=== PATIENT | female | born 1940 ===

== ENCOUNTER → 2018-03-19 | Outpatient (CLI) | payer MEDICARE, SELFPAY ==
[~2018-03-19] MED LIST: AMLO5 PO; Antivert25 MG PO; Coumadin5 MG PO; HYDCHL25 PO; LORA.5 PO; METO25; Nitrostat0.4 MG SL; TRIHYD253B PO; WARF3 PO
== END | disposition home or self-care (01) ==
LOC: LAB SHORT 13:40 → LAB 13:40
DX: R05 Cough (principal)
CPT/HCPCS: 87798

== ENCOUNTER 2018-09-23 08:33 | Day surgery (SDC) | payer MEDICARE ==
[~2018-09-23] VITALS: Ht 162.6 cm; Wt 63.0 kg
[~2018-09-23 08:33] MED LIST changes: +AMLO5; +Metoprolol Succ25 MG
[2018-09-23] MEDS ORDERED: MELA3 (09:20)
== END 2018-09-23 10:40 | disposition home or self-care (01) ==
LOC: ORSCSDS 08:33
PROVIDERS: Ophthalmology
PROC: 08RK3JZ Replacement of Left Lens with Synthetic Substitute, Percutaneous Approach (ICD-10-PCS; principal; 2018-09-23 10:00)
DX: H25.12 Age-related nuclear cataract, left eye (principal); I10 Essential (primary) hypertension; I48.91 Unspecified atrial fibrillation; Z79.01 Long term (current) use of anticoagulants; Z79.899 Other long term (current) drug therapy; Z86.73 Personal history of transient ischemic attack (TIA), and cerebral infarction without residual deficits
CPT/HCPCS: J2001; J2250; J3010; J3301; J7120; V2632

== ENCOUNTER 2019-01-11 08:23 | Day surgery (SDC) | payer MEDICARE, OTHER ==
[~2019-01-11 08:23] MED LIST changes: +MELA3
--- NOTE | 2019-01-11 08:52 | NUR ---
PATIENT TAKES METOPROLOL AT BASELINE FOR RATE CONTROL. TOOK HER METOPROLO THIS AM PER HER USUAL.
--- NOTE | 2019-01-11 09:25 | NUR ---
UNABLE TO PERFORM FULL TEST DUE TO HEART RATE RANGE, PLATFORM STAPLER NOTIFIED BY OTONIEL LOTT AMD EXAM CANCELED DUE TO ARRYTHMIA RATE.
== END 2019-01-11 09:41 | disposition home or self-care (01) ==
LOC: ORD 08:23 → CT 08:23 → ORD 08:30
DX: I25.10 Atherosclerotic heart disease of native coronary artery without angina pectoris (principal); I77.810 Thoracic aortic ectasia; I35.8 Other nonrheumatic aortic valve disorders; I27.21 Secondary pulmonary arterial hypertension; I31.3 Pericardial effusion (noninflammatory); I51.7 Cardiomegaly

== ENCOUNTER → 2019-01-15 | Outpatient (CLI) | payer MEDICARE, OTHER | LOC: PLD 08:12 → LAB SHORT 08:12 | DX: D48.5 Neoplasm of uncertain behavior of skin (principal) | CPT/HCPCS: 88305 ==

== ENCOUNTER → 2019-02-15 | Outpatient (CLI) | payer MEDICARE, OTHER ==
[~2019-02-15] MED LIST changes: +MONDOXYNE NL100 MG PO
== END | disposition home or self-care (01) ==
LOC: LAB 17:20 → LAB SHORT 17:20
DX: L02.11 Cutaneous abscess of neck (principal)
CPT/HCPCS: 87070; 87205

== ENCOUNTER 2019-03-10 08:18 | Day surgery (SDC) | payer MEDICARE, SELFPAY ==
[~2019-03-10] VITALS: Ht 165.1 cm; Wt 61.9 kg
--- NOTE | 2019-03-10 09:40 | NUR ---
03/10/19 0940 Cira Cardona PT TOOK AN EXTENDED AMOUNT OF TIME IN THE RESTROOM. PT INTO ROOM APPROX 0905. PT TOOK COUMADIN THIS MORING; PT LAB VALUE AT 15.3. BOTH SURGEON & ANESTHESIA NOTIFIED; NO ORDERS.
[2019-03-10] MEDS ORDERED: METO50ER PO (09:42)
[2019-03-10] MEDS ORDERED: AMOCLA500 PO (09:43)
--- NOTE | 2019-03-10 09:51 | NUR ---
03/10/19 0951 Mirta Sparrow A SCAB NOTED IN CYST AREA
--- NOTE | 2019-03-10 10:49 | NUR ---
03/10/19 1049 Fela Lawson PT. C/O NAUSEA. PT. VERBALIZED THAT SHE CAME IN WITH NAUSEA FROM TAKING HER AUGMENTIN. PT. OFFERED ZOFRAN BUT PER PT. SHE BROUGHT IN SOME HOMEOPATHIC REMEDY TO TAKE. PT. ALSO HAD VERBALIZED THAT THE NAUSEA MEDICATION PRESCRIBED BY DR. BROWN SHE TOOK AT HOME DIDN'T AGREE WITH HER. PT. INSTRUCTED TO LET DR. BROWN KNOW THIS, PT. THEN VERBALIZED THAT SHE WOULD BE FINE ONCE SHE WAS FINISHED WITH THE AUGMENTIN.
== END 2019-03-10 11:42 | disposition home or self-care (01) ==
LOC: ORSCSDS 08:18
PROVIDERS: Otolaryngology
PROC: 0JB40ZX Excision of Right Neck Subcutaneous Tissue and Fascia, Open Approach, Diagnostic (ICD-10-PCS; principal; 2019-03-10 09:45)
PROC: 0JQ40ZZ Repair Right Neck Subcutaneous Tissue and Fascia, Open Approach (ICD-10-PCS; principal; 2019-03-10 09:45)
DX: L72.0 Epidermal cyst (principal); I10 Essential (primary) hypertension; I48.91 Unspecified atrial fibrillation; Z86.718 Personal history of other venous thrombosis and embolism; Z79.01 Long term (current) use of anticoagulants; Z79.899 Other long term (current) drug therapy
CPT/HCPCS: 82947; 88304; J1100; J2250; J2704; J3010; J7120

== ENCOUNTER 2020-07-11 14:15 | Observation (INO) | payer MEDICARE ==
[~2020-07-11] VITALS: Ht 165.1 cm; Wt 62.1 kg
[~2020-07-11 14:15] MED LIST changes: +AMOCLA500 PO; +METO50ER PO
[2020-07-11 14:50] LABS: BASOPHILS ABSOLUTE AUTO 0.07 K/mm3 (0.00-0.23); BASOPHILS PERCENT AUTO 2 % (0-2); EOSINOPHILS ABSOLUTE AUTO 0.23 K/mm3 (0.00-0.68); EOSINOPHILS PERCENT AUTO 5 % (0-6); Hematocrit 43.3 % (33.0-51.0); Hemoglobin 14.1 g/dL (11.5-16.0); IMMATURE GRAN ABSOLUTE AUTO 0.01 K/mm3 (0.00-0.10); IMMATURE GRAN PERCENT AUTO 0 % (0-1); LYMPHOCYTES ABSOLUTE AUTO 2.07 K/mm3 (0.84-5.20); LYMPHOCYTES PERCENT AUTO 44 % (21-46); MONOCYTES ABSOLUTE AUTO 0.46 K/mm3 (0.16-1.47); MONOCYTES PERCENT AUTO 10 % (4-13); Mean Corpuscular HGB 30.3 pg (26.0-34.0); Mean Corpuscular HGB Conc 32.6 g/dL (31.5-36.5); Mean Corpuscular Volume 93 fL (80-100); Mean Platelet Volume 10.5 fL (9.1-12.4); NEUTROPHILS ABSOLUTE AUTO 1.85 K/mm3 (1.96-9.15); NEUTROPHILS PERCENT AUTO 40 % (41-73); Platelet Count 196 K/mm3 (150-400); RDW Coefficient Variation 14.2 % (11.7-14.2); RDW Standard Deviation 48.7 fL (35.1-46.3); Red Blood Cell Count 4.66 M/mm3 (3.80-5.20); White Blood Cell Count 4.69 K/mm3 (4.00-11.30)
[2020-07-11 15:09] LABS: Troponin I <0.015 ng/mL (0.000-0.040)
[2020-07-11 15:20] LABS: Alanine Aminotransfer (ALT/SGP 29 U/L (12-78); Albumin, Blood 3.7 g/dL (3.4-5.0); Alk Phos 79 U/L (50-136); Anion Gap 2 mmol/L (6-16); Aspartate Aminotrans (AST/SGOT 18 U/L (12-37); Bilirubin, Total 0.6 mg/dL (0.1-1.0); Blood Urea Nitrogen 14 mg/dL (8-24); Bun/Creatinine Ratio 19.2 (12.0-20.0); CO2, Blood 30 mmol/L (21-32); Calcium, Blood 9.2 mg/dL (8.5-10.1); Chloride, Blood 109 mmol/L (98-108); Creatinine, Blood 0.73 mg/dL (0.40-1.00); Globulin, Blood 3.8 g/dL (2.2-4.0); Glomerular Filtration Rate >60 (60-); Glucose, Blood 131 mg/dL (70-99); Potassium, Blood 3.7 mmol/L (3.5-5.5); Sodium, Blood 141 mmol/L (136-145); Total Protein, Blood 7.5 g/dL (6.4-8.2)
[2020-07-11 18:25] LABS: International Normalized Ratio 2.82; Magnesium, Blood 2.3 mg/dL (1.6-2.4); Prothrombin Time Results 28.5 Sec (9.7-11.5); Troponin I <0.015 ng/mL (0.000-0.040)
[2020-07-11] MEDS ORDERED: AMLODIPINE BESYL5 MG PO (19:04)
[2020-07-11] MEDS ORDERED: METO50ER PO (19:04)
[2020-07-11] MEDS ORDERED: Jantoven5 MG PO (19:05)
--- NOTE | 2020-07-11 23:43 | NUR ---
80 yr old female admitted to floor from the ed earlier this shift with dx of chest pain. Placed on med tele per MD orders. Current A fib noted. Pt had voiced having some chest pain for the past several weeks but that the recent pain was different and came in to the hospital. Troponin levels negative as of this writing. Alert and oriented x 4. Oriented to use of call light. Call light in reach
--- NOTE | 2020-07-12 03:36 | NUR ---
SHIFT SUMMARY HAS BEEN RESTING QUIETLY WITH FEW INTERRUPTIONS SINCE HS. MED TELE IN USE. A FIB. CALL LIGHT IN REACH. WILL CONTINUE TO MONITOR.
[2020-07-12 05:04] LABS: BASOPHILS ABSOLUTE AUTO 0.07 K/mm3 (0.00-0.23); BASOPHILS PERCENT AUTO 2 % (0-2); EOSINOPHILS ABSOLUTE AUTO 0.26 K/mm3 (0.00-0.68); EOSINOPHILS PERCENT AUTO 6 % (0-6); Hematocrit 42.2 % (33.0-51.0); Hemoglobin 13.4 g/dL (11.5-16.0); IMMATURE GRAN ABSOLUTE AUTO 0.01 K/mm3 (0.00-0.10); IMMATURE GRAN PERCENT AUTO 0 % (0-1); LYMPHOCYTES ABSOLUTE AUTO 1.89 K/mm3 (0.84-5.20); LYMPHOCYTES PERCENT AUTO 43 % (21-46); MONOCYTES ABSOLUTE AUTO 0.39 K/mm3 (0.16-1.47); MONOCYTES PERCENT AUTO 9 % (4-13); Mean Corpuscular HGB 29.8 pg (26.0-34.0); Mean Corpuscular HGB Conc 31.8 g/dL (31.5-36.5); Mean Corpuscular Volume 94 fL (80-100); Mean Platelet Volume 10.9 fL (9.1-12.4); NEUTROPHILS ABSOLUTE AUTO 1.73 K/mm3 (1.96-9.15); NEUTROPHILS PERCENT AUTO 40 % (41-73); Platelet Count 180 K/mm3 (150-400); RDW Coefficient Variation 14.1 % (11.7-14.2); RDW Standard Deviation 49.2 fL (35.1-46.3); Red Blood Cell Count 4.49 M/mm3 (3.80-5.20); White Blood Cell Count 4.35 K/mm3 (4.00-11.30)
[2020-07-12 05:19] LABS: International Normalized Ratio 3.08; Prothrombin Time Results 30.9 Sec (9.7-11.5)
[2020-07-12 05:27] LABS: Anion Gap 3 mmol/L (6-16); Blood Urea Nitrogen 13 mg/dL (8-24); Bun/Creatinine Ratio 18.3 (12.0-20.0); CO2, Blood 29 mmol/L (21-32); Calcium, Blood 8.7 mg/dL (8.5-10.1); Chloride, Blood 111 mmol/L (98-108); Creatinine, Blood 0.71 mg/dL (0.40-1.00); Glomerular Filtration Rate >60 (60-); Glucose, Blood 90 mg/dL (70-99); Potassium, Blood 3.7 mmol/L (3.5-5.5); Sodium, Blood 143 mmol/L (136-145); Troponin I <0.015 ng/mL (0.000-0.040)
[2020-07-12] MEDS ORDERED: ASPI81CH PO (11:27)
--- NOTE | 2020-07-12 12:12 | NUR ---
DISCHARGE INFORMATION REVIEWED WITH PT- PT VERB UNDERSTANING. PT EATING LUNCH PRIOR TO DC HOME
--- NOTE | 2020-07-12 13:02 | NUR ---
7118 PT DISCHARGED PERSONAL BELONGINGS WITH PT
== END 2020-07-12 12:36 | disposition home or self-care (01) ==
LOC: ER 14:15 → MEDS 14:16
PROVIDERS: Emergency Medicine; Physician Assistant; ADMIT Internal Medicine
DX: R07.9 Chest pain, unspecified (principal); I10 Essential (primary) hypertension; H35.30 Unspecified macular degeneration; I48.21 Permanent atrial fibrillation; I27.21 Secondary pulmonary arterial hypertension; Z79.01 Long term (current) use of anticoagulants; Z87.891 Personal history of nicotine dependence; Z88.2 Allergy status to sulfonamides; Z88.8 Allergy status to other drugs, medicaments and biological substances; Z91.040 Latex allergy status; Z79.899 Other long term (current) drug therapy
CPT/HCPCS: 36415; 71046; 80048; 80053; 83735; 84484; 85025; 85610; 93005; 93010; 93308; 93321; 99285-25; A9270-GY; G0378

== ENCOUNTER 2021-01-15 17:36 | Emergency (ER) | payer MEDICARE ==
[~2021-01-15] VITALS: Ht 165.1 cm; Wt 63.5 kg
[~2021-01-15 17:36] MED LIST changes: +AMLODIPINE BESYL5 MG PO; +ASPI81CH PO; +Jantoven5 MG PO
[2021-01-15 18:30] LABS: BASOPHILS ABSOLUTE AUTO 0.09 K/mm3 (0.00-0.23); BASOPHILS PERCENT AUTO 2 % (0-2); EOSINOPHILS ABSOLUTE AUTO 0.23 K/mm3 (0.00-0.68); EOSINOPHILS PERCENT AUTO 4 % (0-6); Hematocrit 39.3 % (33.0-51.0); Hemoglobin 13.2 g/dL (11.5-16.0); IMMATURE GRAN ABSOLUTE AUTO 0.01 K/mm3 (0.00-0.10); IMMATURE GRAN PERCENT AUTO 0 % (0-1); LYMPHOCYTES ABSOLUTE AUTO 1.84 K/mm3 (0.84-5.20); LYMPHOCYTES PERCENT AUTO 34 % (21-46); MONOCYTES PERCENT AUTO 9 % (4-13); Mean Corpuscular HGB 30.4 pg (26.0-34.0); Mean Corpuscular HGB Conc 33.6 g/dL (31.5-36.5); Mean Corpuscular Volume 91 fL (80-100); Mean Platelet Volume 10.7 fL (9.1-12.4); NEUTROPHILS ABSOLUTE AUTO 2.73 K/mm3 (1.96-9.15); NEUTROPHILS PERCENT AUTO 50 % (41-73); Platelet Count 216 K/mm3 (150-400); RDW Coefficient Variation 14.1 % (11.7-14.2); RDW Standard Deviation 47.4 fL (35.1-46.3); Red Blood Cell Count 4.34 M/mm3 (3.80-5.20)
[2021-01-15 18:43] LABS: International Normalized Ratio 1.92
[2021-01-15 18:58] LABS: Alanine Aminotransfer (ALT/SGP 30 U/L (12-78); Albumin, Blood 3.4 g/dL (3.4-5.0); Albumin/Globulin Ratio 0.9 (0.8-1.8); Alk Phos 80 U/L (50-136); Anion Gap 7 mmol/L (6-16); Aspartate Aminotrans (AST/SGOT 25 U/L (12-37); Bilirubin, Total 0.4 mg/dL (0.1-1.0); Blood Urea Nitrogen 19 mg/dL (8-24); Bun/Creatinine Ratio 24.4 (12.0-20.0); CO2, Blood 27 mmol/L (21-32); Calcium, Blood 8.7 mg/dL (8.5-10.1); Chloride, Blood 109 mmol/L (98-108); Creatinine, Blood 0.78 mg/dL (0.40-1.00); Globulin, Blood 3.8 g/dL (2.2-4.0); Glomerular Filtration Rate >60 (60-); Glucose, Blood 127 mg/dL (70-99); Potassium, Blood 3.6 mmol/L (3.5-5.5); Sodium, Blood 143 mmol/L (136-145); Total Protein, Blood 7.2 g/dL (6.4-8.2)
== END 2021-01-15 20:08 | disposition home or self-care (01) ==
LOC: ER 17:36
PROVIDERS: Physician Assistant
DX: R60.0 Localized edema (principal); Z79.82 Long term (current) use of aspirin; Z79.01 Long term (current) use of anticoagulants; Z88.2 Allergy status to sulfonamides; Z88.1 Allergy status to other antibiotic agents; Z91.040 Latex allergy status; Z88.8 Allergy status to other drugs, medicaments and biological substances
CPT/HCPCS: 36415; 80053; 85025; 85610; 93971; 99284-25